=== PATIENT | female | born 1985 | race Caucasian/White ===

== ENCOUNTER 2017-12-27 14:45 | Inpatient (IN) | payer OTHER ==
[~2017-12-27] VITALS: Ht 167.6 cm; Wt 3.6 kg
[2018-01-06] MEDS ORDERED: PRENATAL PLUS1 EAC2 PO (07:45)
[2018-01-09] MEDS ORDERED: NABUMETONE750 MG PO (14:05)
[2018-01-09] MEDS ORDERED: ACETAMINOPHEN500 M1 PO (14:05)
== END 2018-01-09 14:39 | DRG 766 ==
LOC: SURG-SUITE 01-06 06:46 → O/R 01-06 06:46 → OB/GYN 01-06 07:00 → SURG-SUITE 01-06 11:26 → OB/GYN 01-06 14:45 → SURG-SUITE 01-09 14:39
PROVIDERS: Obstetrics & Gynecology
PROC: 0UL70ZZ Occlusion of Bilateral Fallopian Tubes, Open Approach (ICD-10-PCS; 2018-01-06)
PROC: 4A1HXCZ Monitoring of Products of Conception, Cardiac Rate, External Approach (ICD-10-PCS; 2018-01-06)
PROC: 10D00Z1 Extraction of Products of Conception, Low, Open Approach (ICD-10-PCS; principal; 2018-01-06 07:00)
DX: O34.211 Maternal care for low transverse scar from previous cesarean delivery (principal); Z3A.39 39 weeks gestation of pregnancy; Z37.0 Single live birth; Z30.2 Encounter for sterilization

== ENCOUNTER 2025-01-24 19:21 | Inpatient (IN) | payer OTHER ==
[~2025-01-24] VITALS: Ht 167.6 cm; Wt 68.5 kg
[~2025-01-24 19:21] MED LIST: ACETAMINOPHEN500 M1 PO; NABUMETONE750 MG PO; PRENATAL PLUS1 EAC2 PO
[2025-01-24] MEDS ORDERED: KETOROLAC TROMETHAMINE 30 MG VIAL IV ONE (20:00)
[2025-01-24] MEDS ORDERED: FAMOtidine 10 MG/ML (4ML VIAL) IV ONE (20:00)
[2025-01-24] MEDS ORDERED: 0.9 % SODIUM CHLORIDE 1,000 ML IV ONE (20:00)
[2025-01-24] MEDS ORDERED: KETOROLAC TROMETHAMINE 30 MG VIAL ONE (20:17)
[2025-01-24] MEDS ORDERED: FAMOTIDINE/PF 20 MG/2 ML VIAL ONE (20:17)
[2025-01-24] MEDS ORDERED: METHYLPREDNISOLONE SOD SUCC 40 MG VIAL ONE (21:14)
[2025-01-24] MEDS ORDERED: DIPHENHYDRAMINE HCL 50 MG/ML VIAL 1ML ONE (21:14)
[2025-01-24] MEDS ORDERED: DIPHENHYDRAMINE HCL 50 MG/ML VIAL 1ML IV ONE (21:15)
[2025-01-24] MEDS ORDERED: METHYLPREDNISOLONE SOD SUCC 40 MG VIAL IV ONE (21:15)
[2025-01-24 21:28] LABS: BASO % 0.3 % (0.1-1.2); EOS # 0.06 (0.04-0.54); EOS % 0.5 % (0.7-7.0); LYMPH # 2.02 (1.18-3.74); LYMPH % 15.3 % (19.3-53.1); MEAN PLATELET VOLUME 9.00 fl (9.4-12.4); MONO # 0.76 (0.24-0.82); MONO % 5.7 % (4.7-12.5); NEUT # 10.31 (1.56-6.13); NEUT % 77.8 % (34.0-71.1); RED CELL DISTRIBUTION WIDTH 12.8 % (11.6-14.4)
[2025-01-24 21:50] LABS: INR 1.04
[2025-01-24] MEDS ORDERED: PIPERACILLIN/TAZOBACTAM SODIUM 3.375 GM VIAL IV ONE ×2 (22:00→22:02)
[2025-01-24 22:11] LABS: ALT/SGPT 25.0 U/L (12-78); AST/SGOT 15.0 U/L (15-37); BILIRUBIN TOTAL 0.97 mg/dL (0.3-1.2); BUN CREA RATIO 15.0 (7.0-25.0); CREATININE SERUM 0.65 mg/dL (0.55-1.02); GFR 101.47; GLOBULINA 3.3 G/DL (2.4-3.5); GLUCOSE FASTING 105.0 mg/dL (65-100); HCG QUANTITATIVE 1181.0 mUI/mL (1-3); OSMOLALITY SERUM 279.0 MOSM/KG (275-295)
[2025-01-24 23:54] LABS: URINE APPEARANCE Clear; URINE BILIRRUBIN Negative (NEGATIVE); URINE BLOOD Trace; URINE COLOR Yellow; URINE GLUCOSE Negative (NEGATIVE); URINE KETONE Trace (NEGATIVE); URINE LEUKOCYTE Negative; URINE NITRATE Negative; URINE PROTEIN Negative (NEGATIVE); URINE UROBILINOGEN 0.2 E.U./dl
[2025-01-24 23:58] LABS: URINE BACTERIA 46.8 uL (0.0-1933); URINE CAST 0.14 uL (0.0-1.40); URINE EPITHELIAL CELLS 4.9 uL (0.0-38.8); URINE RBC 0.5 uL (0.0-20.8); URINE WBC 1.6 uL (0.0-23.2)
[2025-01-25 03:12] VITALS: BP 117/76; O2SAT 96
[2025-01-25] MEDS ORDERED: MORPHINE SULFATE 4 MG/ML CARTRIDGE IV PRN (04:30)
[2025-01-25 06:18] LABS: BASO % 0.2 % (0.1-1.2); EOS # 0.00 (0.04-0.54); EOS % 0.0 % (0.7-7.0); LYMPH # 0.74 (1.18-3.74); LYMPH % 6.5 % (19.3-53.1); MEAN PLATELET VOLUME 9.70 fl (9.4-12.4); MONO # 0.37 (0.24-0.82); MONO % 3.3 % (4.7-12.5); NEUT # 10.16 (1.56-6.13); NEUT % 89.7 % (34.0-71.1); RED CELL DISTRIBUTION WIDTH 12.9 % (11.6-14.4)
[2025-01-25] MEDS ORDERED: RINGERS SOLUTION,LACTATED 1,000 ML IV SCH (06:45)
[2025-01-25] MEDS ORDERED: KETOROLAC TROMETHAMINE 60 MG VIAL IM NR (08:00)
[2025-01-25 08:20] VITALS: BP 113/64; O2SAT 98
[2025-01-25] MEDS ORDERED: OxyCODONE HCL 5 MG TABLET (ROXICODONE) PO SCH (09:00)
[2025-01-25 12:37] VITALS: BP 122/74; O2SAT 100
[2025-01-25 16:54] VITALS: BP 107/66
[2025-01-26] VITALS: BP 119/71
[2025-01-26 08:00] VITALS: BP 129/72
== END 2025-01-26 14:30 | disposition home or self-care (01) | DRG 819 ==
LOC: ER 19:21 → SURG 22:29 → SEC-K 22:29 → SURG 01-25 03:33 → OB/GYN 01-25 11:04
PROVIDERS: General Practice; ADMIT Obstetrics & Gynecology; ATTEND Obstetrics & Gynecology
PROC: 0UB00ZZ Excision of Right Ovary, Open Approach (ICD-10-PCS; principal; 2025-01-24)
PROC: 0UB60ZZ Excision of Left Fallopian Tube, Open Approach (ICD-10-PCS; 2025-01-24)
PROC: 10D20ZZ Extraction of Products of Conception, Ectopic, Open Approach (ICD-10-PCS; 2025-01-24)
PROC: BU4CZZZ Ultrasonography of Uterus and Ovaries (ICD-10-PCS; 2025-01-24)
DX: O00.102 Left tubal pregnancy without intrauterine pregnancy (principal); N83.11 Corpus luteum cyst of right ovary